=== PATIENT | male | born 1990 | race Caucasian/White ===

== ENCOUNTER 2020-06-30 14:50 | Outpatient (REF) | payer BC, SELFPAY ==
[2020-07-01 11:38] LABS: COVID-19 RT-PCR UVMMC Result Negative (Negative)
== END 2020-06-30 14:51 | disposition home or self-care (01) ==
LOC: NCHCN 14:50
PROVIDERS: Visit Provider Family Medicine
DX: Z20.822 Contact with and (suspected) exposure to COVID-19 (principal)
CPT/HCPCS: U0003

== ENCOUNTER 2022-11-18 10:29 | Outpatient (REF) | payer BC, SELFPAY ==
[2022-11-18 15:23] LABS: ALT 54 U/L (16-63); AST 30 U/L (15-37); Albumin 4.4 g/dL (3.4-5.0); Alkaline Phosphatase 83 U/L (46-116); Anion Gap 10.9 mmol/L (3-11); BUN 24 mg/dL (7-18); Bilirubin, Total 0.5 mg/dL (0.2-1.0); CO2 27.1 mmol/L (21.0-32.0); Calcium 9.8 mg/dL (8.5-10.1); Calculated LDL 139 mg/dL (<100); Chloride 103 mmol/L (98-107); Cholesterol 219 mg/dL (<200); Estimated GFR 101.92 (mL/min/1.73m2); Glucose 107 mg/dL (74-106); HDL Cholesterol 69 mg/dL (40-60); Potassium 3.9 mmol/L (3.5-5.1); Sodium 141 mmol/L (136-145); Total Protein 7.7 g/dL (6.4-8.2); Triglyceride 58 mg/dL (<150)
[2022-11-26 12:09] LABS: Testosterone, Free 12.2 ng/dL (4.85-19.0); Testosterone, Total 427 ng/dL (240-950)
== END 2022-11-18 10:30 | disposition home or self-care (01) ==
LOC: NCHCN 10:29
PROVIDERS: Visit Provider Family Medicine
DX: I10 Essential (primary) hypertension (principal); F41.9 Anxiety disorder, unspecified
CPT/HCPCS: 80053; 80061; 84402; 84403